=== PATIENT | male | born 1955 | race Caucasian/White ===

== ENCOUNTER 2021-09-09 08:06 | Outpatient (CLI) | payer OTHER ==
--- NOTE | 2021-09-09 09:28 | SLEEP CARE CONSULTATION ---
Information from patient questionnaire entered by Jackie Armstrong MA. I have reviewed and concur with the information entered by Jackie Armstrong MA. This document represents the service I personally performed and the decisions made by , Geovanna Kasper ARNP. History of Present Illness Service Date and Time: 09/09/2021 0806 Reason for Visit: New patient, Previously diagnosed sleep apnea, sleep apnea on CPAP therapy Chief Complaint: reports: Insomnia, Unrefreshed sleep, Snoring, Observed pauses in breathing, Fatigue, Other (these are from prior to BIPAP therapy) Date of Onset: 40 PLUS YEARS Usual bedtime: VARIES Time it takes to fall asleep: 30 MINUTES Snores at night: Yes Observed to quit breathing while asleep: Yes Sleeps alone due to snoring: No Number of times waking at night: 1 Toss, Turn, or Twitch while sleeping: Yes Recalls having dreams: No Feels refreshed in the morning: No Morning headache: No Sleepy or fatigued during the day: Yes Ever fallen asleep while driving: No Takes day naps: No Dreams during day naps: No Prior sleep studies: Yes Year and Where: [place] [facility] Additional HPI information: FAIZAN JACK was previously diagnosed to have unknown, AHI unknown, sleep apnea-hypopnea syndrome and comes in today to establish care for BIPAP therapy. He has been on a BIPAP for about 12 years. He states he was told he was moderate to severe. He also comes in today to ask about the Inspire implant therapy for sleep apnea. - Parasomnia Symptoms Ever been unable to move upon waking from sleep: No Walks in sleep: No Talks in sleep: No Ever acted out dreams in sleep: No Ever felt weak in the knees when startled or emotional: No Bothered by creepy, crawly, restless sensations in legs: No Problems with memory or concentration: Yes CPAP Compliance Data - Data Reviewed with Patient Average duration of nightly device use: 7 hours 16 minutes Compliance rate %: 92.2 Current pressure setting (cmH2O): 18/15 Average residual AHI: 5.8 Average large leak: 32 minutes 47 seconds Compliance data discussion: Patient has a Dreamstation Auto BIPAP that he got on 2019. He uses a full face mask. He has obtained his supplies from [employer] but is now with [facility]. He is thinking of going to [place] for his supplies. Subjective Missed days of use due to: reports: other (fall asleep without it) Patient concerns: reports: air blowing in eyes, mask leak noise, dry mouth, nose, throat (little bit). denies: aerophagia, mask discomfort, condensation in mask/hose, nasal congestion, epistaxis, other Observed to snore while using device: No ( ) Current pressure setting perceived as: too high (feels too much) On therapy, patient: reports: sleeping better, awakening more refreshed, being more awake and alert during the day, more rested overall. denies: drowsiness while driving Initial [place] Sleepiness Scale score: 6 (2021) Past Medical History Past Medical History: reports: Hypertension Social History The patient's occupation is a RE. Patient is and lives in [place]. Have you smoked in the past 12 months: No Cigarettes per day (20/pack): 60 Years of smokin Quit date: 1999 Smoking Pack Years: 60.0 Alcohol use: Yes Alcohol amount and frequency: QUIT 25 YEARS AGO Caffeine use: Yes Caffeine amount and frequency: 1-2 X DAILY Family History Family history of sleep disordered breathing: No Allergies and Home Medications Drug allergies reviewed: Yes (NKDA) Home medication list reviewed: Yes Allergy and home medication list: HCTZ Losartan ergocalciferol aspirin Vitamin D3 Vitamin C Review of Systems Cardiovascular: reports: high blood pressure Physical Exam Vital signs obtained and entered by: LOPEZ PEREZ Blood Pressure: 133/75 (LEFT, PULSE 70) Heart Rate: 78 O2 Saturation: 96 (PAPER MASK) Height: 6 ft 2 in Weight: 280 lb (CLOTHES) Body Mass Index: 35.9 BMI Classification: Obese Heart: regular rate and rhythm Lungs: clear bilaterally Impression and Plan 1. Obstructive Sleep Apnea-Hypopnea Syndrome, unknown, with good treatment compliance and fair apnea control with minimal elevation of residual AHI. On BIPAP therapy, the patient has better sleep quality and is more rested overall. Patient has been looking into the inspire implant therapy for sleep apnea. He states he was looking and noted that they would need a updated sleep study. We do not have a copy of his last sleep study. We discussed going he had to get an updated measurement of his diagnosis and severity and he voiced agreement. I will order a polysomnograph\HST and follow-up with him after this test. He will continue with his BiPAP at current settings. [facility] Once I have a sleep study I will be able to do this. Patient states he may have a copy of his last sleep study at home and will look to see if he can find it. He will bring this in when he does. Patient's apnea severity and rationale for treatment to reduce apnea, improve sleep quality and reduce cardiovascular and cerebrovascular events was reviewed. I also reviewed the benefit of consistent device use of BIPAP for hypertension. Patient states he has lost a few pounds without really trying. He is aware that he needs to lose weight and I encouraged him in this as it will improve his overall health and reduce the apneas that he has. * Continue auto BIPAP pressure at 18/15 cmH2O * PSG/HST to verify/update diagnosis and severity * Notify me if snoring with mask or feeling that the pressure is too much or too little * Attempt to lose weight * Call this office if any problems using CPAP * Return for follow up after sleep study, or sooner if concerns arise Counseling Topics: Weight loss health impact Visit Type: In Office Time Spent with Patient (minutes): 44 Provider Statement: I spent 100% of the Face to Face Visit with the patient with greater than 50% spent counseling the patient and coordination of care.
[2021-09-09 09:29] VITALS: BP 133/75
== END 2021-09-09 08:07 | disposition home or self-care (01) ==
LOC: SC 08:06
PROVIDERS: ATTEND Nurse Practitioner Family
DX: G47.33 Obstructive sleep apnea (adult) (pediatric) (principal); E66.9 Obesity, unspecified; Z68.35 Body mass index [BMI] 35.0-35.9, adult
CPT/HCPCS: 99203; 99212

== ENCOUNTER 2021-10-11 08:27 | Outpatient (CLI) | payer OTHER | END 2021-10-11 08:28 | disposition home or self-care (01) | LOC: SC 08:27 | PROVIDERS: ATTEND Nurse Practitioner Family | DX: G47.33 Obstructive sleep apnea (adult) (pediatric) (principal); R09.02 Hypoxemia | CPT/HCPCS: 95806 ==

== ENCOUNTER 2021-10-26 10:08 | Outpatient (CLI) | payer OTHER ==
[2021-10-26 10:24] VITALS: BP 139/78
--- NOTE | 2021-10-26 10:25 | SLEEP CARE CONSULTATION ---
Information from patient questionnaire entered by Jackie Armstrong MA. I have reviewed and concur with the information entered by Jackie Armstrong MA. This document represents the service I personally performed and the decisions made by Majo mast Caren J, ARNP. History of Present Illness Service Date and Time: 10/26/2021 1000 Initial [place] Sleepiness Scale score: 6 (2021) Current [place] Sleepiness Scale score: 5 (10/2021) Additional HPI information: FAIZAN JACK returns for follow up and results of the recently performed home sleep study. I explained the pathophysiology behind obstructive sleep apnea. We then spent quite a bit of time discussing different treatment options. For mild obstructive sleep apnea, surgery and oral appliance are alternatives to nasal CPAP therapy but in moderate or severe cases, nasal CPAP is the most effective and reliable treatment. Patient is currently on BIPAP set at 18/15 cmH20. Patient counseled not drink alcohol less than 4 hours before bedtime as it can increase snoring and apnea. Patient was cautioned about risks of drowsy driving until sleepiness symptoms resolve. Sleep Study - Results Type of Sleep Study: Home sleep study (F/U HOME STUDY) Prior sleep studies: Yes Year and Where: [facility] Polysomnography/Home Sleep Study results: Physician Impression: The quality of the study is good. The length of the study is adequate (> 240 minutes). Please also see the tabulated and graphic data. 1. Obstructive Sleep Apnea-Hypopnea (ICD-10 G47.33), moderate, with an AHI of 22.0/hr and agustín SaO2 of 85%. During the study, the patient had 127 apneas (127 obstructive, 0 central, 0 mixed) and 39 hypopneas. The longest episode lasted 149.0 seconds. The respiratory events occurred more frequently during supine sleep (supine AHI was 61.1 and non-supine, 10.74). 2. Hypoxemia (ICD-10 R09.02), mild, with the lowest oxygen saturation of 85 % and 165.4 minutes with SaO2 under 90%. Baseline oxygen saturation was normal (Average oxygen saturation was 90%). Allergies and Home Medications Home medication list reviewed: Yes (No changes) Allergy and home medication list: Allergies No Known Drug Allergies Allergy (Verified 02/19/15 16:18) Review of Systems Review of systems same as previous: Yes (no changes) Physical Exam Vital signs obtained and entered by: LOPEZ PEREZ Blood Pressure: 139/78 (pulse 81, resp 18, right) Cuff size: wrist Heart Rate: 80 O2 Saturation: 94 (coth mask) Height: 6 ft 2 in Weight: 276 lb Body Mass Index: 35.4 BMI Classification: Obese Impression and Plan 1. Obstructive Sleep Apnea-Hypopnea Syndrome, moderate, with lowest oxygen saturation of 85%. The patient will continue on BIPAP therapy with pressure set at 18/15 cmH2O. Compliance guidelines also reviewed. Patient also had questions about inspire implant. I reviewed with him how it works and the need for a f urther evaluation. Patient requesting referral for further evaluation. Referral to Dr. Moe will be sent. We can follow-up with patient here next year for his BiPAP. He is to let us know if things change and he has the implant placed. 2. Hypoxemia, mild, with the lowest oxygen saturation of 85 % and 165.4 minutes with SaO2 under 90%. His baseline oxygen saturation was normal with an average oxygen saturation of 90%. 2. Obesity, unspecified. Currently patients BMI is 35.4. Obesity increases the risk of apnea, BIPAP pressure requirements and overall health risks especially cardiovascular and diabetes. Thus patient is advised to lose weight. Weight loss can be done with reducing portion size, reducing refined foods and balancing content with vegetables, fruit and whole grain foods. In addition, patient encouraged to get regular exercise. * Continue BIPAP pressure at 18/15 cmH2O * Referral to Dr. Meo for Inspire implant evaluation * Notify me if snoring with mask or feeling that the pressure is too much or too little * Attempt to lose weight * Call this office if any problems using BIPAP * Return for follow up in 1 year, or sooner if concerns arise Counseling Topics: Weight loss health impact Visit Type: In Office Time Spent with Patient (minutes): 23 Provider Statement: I spent 100% of the Face to Face Visit with the patient with greater than 50% spent counseling the patient and coordination of care.
== END 2021-10-26 10:09 | disposition home or self-care (01) ==
LOC: SC 10:08
PROVIDERS: ATTEND Nurse Practitioner Family
DX: G47.33 Obstructive sleep apnea (adult) (pediatric) (principal); R09.02 Hypoxemia; E66.9 Obesity, unspecified; Z68.35 Body mass index [BMI] 35.0-35.9, adult
CPT/HCPCS: 99212; 99213

== ENCOUNTER 2024-01-29 08:04 | Outpatient (CLI) | payer MEDICARE, OTHER ==
--- NOTE | 2024-01-29 08:54 | Sleep Patient Instructions ---
Sleep Center Visit Summary - Patient Visit Information Reason for Visit: Annual followup - Patient Instructions Additional Instructions: You will continue with CPAP therapy with pressure changed to 16/13 cmH2O. A supply prescription will be updated with your DME. I have added an order to update your PAP machine. Please call the office to schedule a compliance follow up once you get your new device. We encourage you to continue to try to lose weight. Please follow up with the sleep care office one month after obtaining new device. - Clinic Information Contact: [facility] [address] [place] [address] [email or web address] T: [phone]
--- NOTE | 2024-01-29 08:59 | SLEEP CARE CONSULTATION ---
Information from patient questionnaire entered by Margarita Connell. I have reviewed and concur with the information entered by Margarita Connell. This document represents the service I personally performed and the decisions made by , Geovanna Kasper ARNP. History of Present Illness Service Date and Time: 01/29/2024 0804 Previous diagnosis: Moderate, Obstructive Sleep Apnea-Hypopnea Syndrome AHI: 22 (10/11/21) Reason for follow up: annual (LAST SEEN 10/2021) Equipment type: CPAP (Dreamstation, not replaced) Equipment obtained from: Other ([facility]; getting supplies) Mask style: Full face (Quattro FX) Mask brand: Resmed Backup mask available: No Last cushion change: 3 months Prior sleep studies: Yes Year and Where: [facility] Type of Sleep Study: Home sleep study (10/11/2021) HPI additional information: FAIZAN JACK was diagnosed to have moderate, AHI 22, obstructive sleep apnea- hypopnea syndrome and returned today for CPAP therapy annual follow-up. Sleep Study - Results Type of Sleep Study: Home sleep study (F/U HOME STUDY) Prior sleep studies: Yes Year and Where: [facility] CPAP Compliance Data - Data Reviewed with Patient Average duration of nightly device use: 7 hours 11 minutes Compliance rate %: 100 (180/180 days used) Current pressure setting (cmH2O): 18/15 Average residual AHI: 10.2 Central apnea: 8.4 Obstructive apnea: 1 Hypopnea: 0.8 Average large leak: 17 mins 6 secs Subjective Patient concerns: reports: air blowing in eyes, dry mouth, nose, throat. denies: aerophagia, mask discomfort, mask leak noise, condensation in mask/hose, nasal congestion, epistaxis Observed to snore while using device: No Current pressure setting perceived as: too high (occasionally) On therapy, patient: reports: sleeping better, awakening more refreshed, being more awake and alert during the day, more rested overall. denies: drowsiness while driving Initial [place] Sleepiness Scale score: 6 (2021) Current [place] Sleepiness Scale score: 4 (01/29/24) Allergies and Home Medications Known drug allergies: No Drug allergies reviewed: Yes Home medication list reviewed: Yes (no changes) Allergy and home medication list: Allergies No Known Drug Allergies Allergy (Verified 01/24/24 08:17) Review of Systems Review of systems same as previous: Yes (NO CHANGE) Physical Exam Vital signs obtained and entered by: MARGARITA Jones MA Blood Pressure: 146/99 (LEFT ARM) Cuff size: long Heart Rate: 73 O2 Saturation: 94 Height: 6 ft 2 in Weight: 265 lb Body Mass Index: 34.0 BMI Classification: Obese Impression and Plan 1. Obstructive Sleep Apnea-Hypopnea Syndrome, moderate, with good treatment compliance and fair apnea control with elevated residual AHI. On CPAP therapy, the patient has better sleep quality and is more rested overall. He has a Dreamstation that he received around 2019 and is one that has not been replaced. The patients CPAP is over 5 years old and of reasonable use. In addition, it is starting to make louder noise, a sign of malfunction. Thus, the CPAP will be u pdated. A [facility]O prescription will be made. Compliance guidelines for new device and follow up discussed. His average residual is elevated with the central index at 8.4. The patients pressure will be changed to autoCPAP 16/13 cmH20 for elevation of residual AHI. Patient advised to contact me if pressure change is uncomfortable so that it can be adjusted. Goals for apnea control discussed. Patient's apnea severity and rationale for treatment to reduce apnea, improve sleep quality and reduce cardiovascular and cerebrovascular events was reviewed. hypertension 2. Obesity, unspecified. Currently patients BMI is 34. Obesity increases the risk of apnea, CPAP pressure requirements and overall health risks especially cardiovascular and diabetes. Thus patient is advised to lose weight. * Change auto CPAP pressure to 16/13 cmH2O * Update machine * Update supply prescription * Notify me if snoring with mask or feeling that the pressure is too much or too little * Attempt to lose weight * Call this office if any problems using CPAP * Return for follow up one month after obtaining new device, or sooner if concerns arise Counseling Topics: Spare mask, Weight loss health impact Prescriptions: Device supplies Plan: update machine and compliance follow up Visit Type: In Office Time Spent with Patient (minutes): 26 Provider Statement: I spent 100% of the Face to Face Visit with the patient with greater than 50% spent counseling the patient and coordination of care.
[2024-01-29 09:01] VITALS: BP 146/99; O2SAT 94
== END 2024-01-29 08:05 | disposition home or self-care (01) ==
LOC: SC 08:04
PROVIDERS: ATTEND Nurse Practitioner Family
DX: G47.33 Obstructive sleep apnea (adult) (pediatric) (principal); E66.9 Obesity, unspecified; Z68.34 Body mass index [BMI] 34.0-34.9, adult
CPT/HCPCS: 99213; G0463; 99212